=== PATIENT | female | born 1995 | race Caucasian/White ===

== ENCOUNTER 2017-04-06 13:20 | Emergency (ER) | payer OTHER ==
[2017-04-06 13:26] VITALS: BMI 32.3
--- NOTE | 2017-04-06 13:39 | PDOC ---
History of Present Illness - General Chief Complaint: Pain, Acute Stated Complaint: POST COMPLICATIONS Time Seen by Provider: 04/06/17 13:38 - History of Present Illness Initial Comments: 04/06/17 13:38 Ms. Pete Zhong is a 22 yo female 1 week post who presents to the emergency department complaining of pain at her epesiotomy site. She says that her also noticed "something down there" as well. She says her pain has remained constant since delivering last week. The patient denies chest pain, shortness of breath, headache and dizziness. Denies fever, chills, nausea, vomit, diarrhea and constipation. Denies dysuria, frequency, urgency and hematuria. Allergies: NKDA Past surgical history: Denies Social history: Denies PMD -Kimmie Shelley Past History - Past Medical History Allergies/Adverse Reactions: Allergies Allergy/AdvReac Type Severity Reaction Status Date / Time No Known Allergies Allergy Verified 04/06/17 14:21 Home Medications: Ambulatory Orders Iron,Carbonyl/Vit C/Vit B12/FA [Iron 100 Plus Tablet] 1 each PO DAILY 04/06/17 Asthma: No Cancer: No Cardiac Disorders: No Diabetes: No HTN: No Seizures: No Thyroid Disease: No Other medical history: DENIES MEDICAL HX - Suicide/Smoking/Psychosocial Hx Smoking History: Never smoked Have you smoked in the past 12 months: No Hx Alcohol Use: No Drug/Substance Use Hx: No Hx Substance Use Treatment: No Review of Systems - Review of Systems Comments:: 04/06/17 13:39 GENERAL/CONSTITUTIONAL: No fever or chills. No weakness. HEAD, EYES, EARS, NOSE AND THROAT: No change in vision. No ear pain or discharge. No sore throat. CARDIOVASCULAR: No chest pain or shortness of breath RESPIRATORY: No cough, wheezing, or hemoptysis. GASTROINTESTINAL: No nausea, vomiting, diarrhea or constipation. GENITOURINARY: No dysuria, frequency, or change in urination. MUSCULOSKELETAL: No joint or muscle swelling or pain. No neck or back pain. SKIN: No rash NEUROLOGIC: No headache, vertigo, loss of consciousness, or change in strength/ sensation. ENDOCRINE: No increased thirst. No abnormal weight change HEMATOLOGIC/LYMPHATIC: No anemia, easy bleeding, or history of blood clots. ALLERGIC/IMMUNOLOGIC: No hives or skin allergy. VAGINAL: Pain at epesiotomy site she rates 8/10. Denies discharge or pus from site. *Physical Exam - Vital Signs Last Vital Signs Temp Pulse Resp BP Pulse Ox 98.3 F 108 H 16 120/77 100 04/06/17 13:23 04/06/17 13:23 04/06/17 13:23 04/06/17 13:23 04/06/17 13:23 - Physical Exam Comments: 04/06/17 13:39 GENERAL: Awake, alert, and fully oriented, in no acute distress HEAD: No signs of trauma, normocephalic, atraumatic EYES: PERRLA, EOMI, sclera anicteric, conjunctiva clear ENT: Auricles normal inspection, hearing grossly normal, nares patent, oropharynx clear without exudates. Moist mucosa NECK: Normal ROM, supple, no lymphadenopathy, JVD, or masses LUNGS: No distress, speaks full sentences, clear to auscultation bilaterally HEART: Regular rate and rhythm, normal S1 and S2, no murmurs, rubs or gallops, peripheral pulses normal and equal bilaterally. ABDOMEN: Soft, nontender, normoactive bowel sounds. No guarding, no rebound. No masses EXTREMITIES: Normal inspection, Normal range of motion, no edema. No clubbing or cyanosis. NEUROLOGICAL: Cranial nerves II through XII grossly intact. Normal speech, normal gait, no focal sensorimotor deficits SKIN: Warm, Dry, normal turgor, no rashes or lesions noted. VAGINAL: Epesiotomy site well healing with absorbable sutures noted. Skin tag also present at site. No erythema, swelling, or discharge noted. Patient tender to palpation on Right side of site. ED Treatment Course - LABORATORY CBC & Chemistry Diagram: 04/06/17 14:05 04/06/17 14:05 Medical Decision Making - Medical Decision Making 04/06/17 16:06 Epesiotomy site directly inferior to vaginal opening, well healing with absorbable sutures noted. No discharge, no fever, no other complaints. Discussed with HOSPITALITY SPECIALIST diet consultant (Aries), advised outpatient follow-up as needed. Patient can take motrin as needed for pain. *DC/Admit/Observation/Transfer Diagnosis at time of Disposition: Episiotomy pain - Discharge Dispostion Disposition: HOME - Patient Instructions Printed Discharge Instructions: DI for Episiotomy Additional Instructions: Please return if any increase in pain, fever, or discharge noted. Follow-up with your HOSPITALITY SPECIALIST as needed.
[2017-04-06 14:16] LABS: BASOPHIL 0.7 % (0-2.0); EOSINOPHIL 4.6 % (0-4.5); MCH 25.6 pg (25.7-33.7); MCHC 31.7 g/dl (32.0-36.0); MEAN CELL VOLUME 80.6 fl (80-96); MEAN PLT VOLUME 6.9 fl (7.5-11.1); NEUTROPHILS 67.6 % (42.8-82.8); PLATELET COUNT 531 K/MM3 (134-434); RDW 16.6 % (11.6-15.6); WHITE BLOOD COUNT 10.7 K/mm3 (4.0-10.0)
[2017-04-06 14:31] LABS: ALBUMIN 3.4 g/dl (3.4-5.0); ANION GAP 11 (8-16); CALCIUM 9.3 mg/dL (8.5-10.1); CO2 24 mmol/L (21-32); CREATININE 0.5 mg/dL (0.55-1.02); GLUCOSE,RANDOM 108 mg/dL (74-106); SGOT/AST 38 U/L (15-37); SGPT/ALT 59 U/L (12-78)
--- NOTE | 2017-04-06 14:32 | PDOC ---
Attending Attestation - Resident Resident Name: Narendra Farrell - ED Attending Attestation I have performed the following: I have examined & evaluated the patient, The case was reviewed & discussed with the resident, I agree w/resident's findings & plan, Exceptions are as noted - HPI HPI: 04/06/17 14:30 22yo F 1 week post p/w pain at episiotomy site. Has not taken any medication for pain. Denies fevers, chills. Denies vaginal bleeding/discharge. Baby is doing well. Denies recent shortness of breath, chest pain, nausea, vomiting, diarrhea, dysuria, rashes, weakness, headache. - Physicial Exam PE: 04/06/17 14:51 GENERAL: Awake, alert, and fully oriented, in no acute distress HEAD: No signs of trauma EYES: PERRLA, EOMI, sclera anicteric, conjunctiva clear ENT: Auricles normal inspection, hearing grossly normal, nares patent, oropharynx clear without exudates. Moist mucosa NECK: Normal ROM, supple, no lymphadenopathy, JVD, or masses LUNGS: Breath sounds equal, clear to auscultation bilaterally. No wheezes, and no crackles HEART: Regular rate and rhythm, normal S1 and S2, no murmurs, rubs or gallops ABDOMEN: Soft, nontender, normoactive bowel sounds. No guarding, no rebound. No masses EXTREMITIES: Normal range of motion, no edema. No clubbing or cyanosis. No cords, erythema, or tenderness NEUROLOGICAL: Normal speech, cranial nerves intact, negative pronator drift, 5/ 5 strength in all 4 extremities, normal sensation to light touch in all 4 extremities, normal cerebellar exam, normal gait, normal reflexes and tone SKIN: Warm, Dry, normal turgor, no rashes or lesions noted. MARKETING AGENT: see Dr. Farrell's note. - Medical Decision Making 04/06/17 14:51 22-year-old female 1 week post presents with pain at episiotomy site. Heart rate in triage was 108, on my exam heart rate is 92. Exam done by Dr. Farrell under my supervision reveals no vaginal bleeding or discharge and a well-healing episiotomy site with sutures in place. No signs of dehiscence. Likely post-episiotomy pain. Plan: -pain control -reassess 04/06/17 15:58 Pain is better controlled. OB recommends out patient f/u so long as there is no erythema, purulence, bleeding or discharge which are not present. I discussed the physical exam findings, ancillary test results and final diagnoses with the patient. I answered all of the patient's questions. The patient was satisfied with the care received and felt comfortable with the discharge plan and treatment plan. The patient will call their primary care physician within 24 hours to arrange follow-up and will return to the Emergency Department with any new, persistent or worsening symptoms.
[2017-04-06 14:34] LABS: ALK PHOS 206 U/L (45-117); BILIRUBIN,TOTAL 0.2 mg/dL (0.2-1.0); TOT PROT 7.8 g/dl (6.4-8.2)
[2017-04-06] MEDS ORDERED: KETOROLAC TROMETHAMINE 15 MG/ML VIAL IM ONE (15:39)
[2017-04-06] MEDS ORDERED: KETOROLAC TROMETHAMINE 15 MG/ML VIAL ONE (15:59)
[2017-04-06 16:28] VITALS: BP 125/73; PULSE 78; TEMP 98.2
== END 2017-04-06 16:28 | disposition home or self-care (01) ==
LOC: JER 13:20
PROC: 3E0333Z Introduction of Anti-inflammatory into Peripheral Vein, Percutaneous Approach (ICD-10-PCS; principal; 2017-04-06)
DX: O90.89 Other complications of the puerperium, not elsewhere classified (principal)
CPT/HCPCS: 36415; 80053; 85025; 96372; 99283-25